=== PATIENT | female | born 1950 | race Caucasian/White ===

== ENCOUNTER 2017-05-23 06:21 | Emergency (ER) | payer OTHER ==
[~2017-05-23] VITALS: Ht 147.3 cm; Wt 58.7 kg
[~2017-05-23 06:21] MED LIST: ALL DAY ALLERGY10 M3 PO; ASPIR-LOW81 MG PO; ATENOLOL25 MG PO; BUTALB-APAP-CA1 EACH PO; CALCIUM + D3 E1 EACH PO; CLARITIN10 M3 PO; COUGH & COLD S237 ML PO; DAILY VALUE1 EACH PO; DITROPAN XL10 MG PO; FLONASE16 G1 BOTH NARES; FLUOXETINE HCL20 MG PO; FLUTICASONE PRO60 ML TP; HYDROCHLOROTHIA25 MG PO; KEPPRA500 MG PO; LEVETIRACETAM500 MG PO; MULTIVITAMIN1 EAC1 PO; OMEPRAZOLE20 MG PO; OXYBUTYNIN CHLOR5 MG PO; PRAVACHOL40 M1 PO; PROZAC20 MG PO; RANITIDINE HCL150 M1 PO; SUCRALFATE1 GM PO; TENORMIN50 MG PO; VITAMIN D2000 UNIT PO
[2017-05-23 08:12] LABS: EOSINOPHIL (%) 1.6 % (0-5); EOSINOPHIL COUNT 0.1 K/uL (0-0.3); HEMATOCRIT 36.3 % (36.0-46.0); IMMATURE GRANULOCYTE (%) 0.5 % (0.0-0.7); INSTRUMENT ABS NEUTROPHIL CT 2.2 K/uL; LYMPHOCYTE COUNT 1.7 K/uL (1.0-2.8); MCH 30.7 PG (29.0-34.0); MCHC 33.9 G/DL (30.0-36.0); MCV 90.5 FL (83-99); MEAN PLAT.VOLUME 9.4 uM^3 (9.5-12.4); MONOCYTE (%) 8.7 % (3-12); MONOCYTE COUNT 0.4 K/uL (0-0.8); NEUTROPHIL (%) 49.8 % (45-76); NEUTROPHIL COUNT 2.2 K/uL (1.8-6.4); PLATELET COUNT 212 K/uL (156-360); RBC DIS.WIDTH-CV 12.4 % (11.8-14.6); RED BLOOD COUNT 4.01 M/uL (3.80-5.20); WHITE BLOOD COUNT 4.4 K/uL (4.1-10.2)
[2017-05-23 08:45] LABS: ANION GAP 7 MEQ/L (2-14); CHLORIDE 103 MEQ/L (99-109); POTASSIUM 3.4 MEQ/L (3.7-5.4); SAMPLE HEMOLYSIS CHECK 0; SAMPLE ICTERIC CHECK 0; SAMPLE LIPEMIA CHECK 0; SODIUM 138 MEQ/L (136-147)
[2017-05-23 08:50] LABS: GFR ESTIMATE (CALCULATED) > 59 mL/min/; GLUCOSE 101 mg/dL (70-99); UREA NITROGEN (BUN) 18 mg/dL (9-23)
[2017-05-23] MEDS ORDERED: MEDROL DOSEPAK4 MG PO (10:10)
[2017-05-23 10:21] VITALS: BP 130/73
== END 2017-05-23 10:29 | disposition home or self-care (01) ==
LOC: EME 06:21
PROVIDERS: Emergency Medicine
DX: J30.2 Other seasonal allergic rhinitis (principal); R22.0 Localized swelling, mass and lump, head; R51 Headache; I10 Essential (primary) hypertension; Z86.73 Personal history of transient ischemic attack (TIA), and cerebral infarction without residual deficits; Z87.891 Personal history of nicotine dependence
CPT/HCPCS: 80048; 85025; 99281; 99284; J7512